=== PATIENT | male | born 1950 | race African-American/Black ===

== ENCOUNTER 2017-04-18 12:09 | Emergency (ER) | payer BC ==
[~2017-04-18] VITALS: Ht 180.3 cm; Wt 90.7 kg
[~2017-04-18 12:09] MED LIST: DOCU100T7; OXYCONTIN
[2017-04-18 12:20] VITALS: BP 118/63
== END 2017-04-18 14:42 | disposition home or self-care (01) ==
LOC: ER 12:09
DX: S46.912A Strain of unspecified muscle, fascia and tendon at shoulder and upper arm level, left arm, initial encounter (principal); Z79.899 Other long term (current) drug therapy; M25.562 Pain in left knee; G89.29 Other chronic pain; V43.52XA Car driver injured in collision with other type car in traffic accident, initial encounter; Y93.89 Activity, other specified; Y92.89 Other specified places as the place of occurrence of the external cause; Y99.8 Other external cause status

== ENCOUNTER 2017-04-27 18:25 | Emergency (ER) | payer BC ==
[~2017-04-27] VITALS: Ht 180.3 cm; Wt 88.5 kg
[2017-04-27 18:40] VITALS: BP 121/75
[2017-04-27 19:35] LABS: Basophils # (auto) 0 uL; Basophils % (auto) 0.5 % (0.0-2.0); CONDITION Y; Eosinophils # (auto) 0.1 uL; Eosinophils % (auto) 0.9 % (0.0-7.0); Hematocrit 47.8 % (41.0-53.0); Hemoglobin 16.2 g/dL (13.5-17.5); Lymphocytes # (auto) 2.2 uL; Lymphocytes % (auto) 27.2 % (10.0-50.0); Mean Corpuscular Hemoglobin 30.4 pg (28.0-32.0); Mean Corpuscular Hgb Conc. 33.9 g/dL (32.0-36.0); Mean Corpuscular Volume 89.6 fL (80.0-100.0); Mean Platelet Volume 7.4 fL (7.4-10.4); Monocytes # (auto) 1.1 uL; Monocytes % (auto) 12.9 % (0.0-12.0); Neutrophils # (auto) 4.8 uL; Neutrophils % (auto) 58.5 % (37.0-80.0); Platelet Count (auto) 224 10^3/uL (140-450); Red Cell Distribution Width 13.2 % (11.6-16.0); White Blood Cell 8.2 10^3/uL (4.4-10.8)
[2017-04-27 20:13] LABS: Albumin 3.8 g/dL (3.4-5.0); Alkaline Phosphatase 118 U/L (45-117); Anion Gap 6 (5-15); Aspartate Aminotransferase 20 U/L (15-37); BUN/Creatinine Ratio 12.2; Bilirubin, Total 1.1 mg/dL (0.2-1.0); Blood Urea Nitrogen 11 mg/dL (7-18); Calcium 8.8 mg/dL (8.5-10.1); Carbon Dioxide 28 mmol/L (21-32); Chloride 102 mmol/L (98-107); GFR African American 108 mL/min; GFR Non-African American 89 mL/min; Glucose 115 mg/dL (74-106); Potassium 3.7 mmol/L (3.5-5.1); Sodium 136 mmol/L (136-145); Total Protein 7.4 g/dL (6.4-8.2)
== END 2017-04-27 23:40 | disposition left against medical advice (07) ==
LOC: ER 18:26
DX: R07.9 Chest pain, unspecified (principal); Z53.21 Procedure and treatment not carried out due to patient leaving prior to being seen by health care provider
CPT/HCPCS: 36415; 71020; 80053; 84484; 85025; 93005

== ENCOUNTER 2017-12-19 14:54 | Emergency (ER) | payer BC ==
[~2017-12-19] VITALS: Ht 180.3 cm; Wt 86.2 kg
[2017-12-19 15:10] VITALS: BP 107/80
== END 2017-12-19 16:02 | disposition home or self-care (01) ==
LOC: ER 14:59
DX: G89.29 Other chronic pain (principal); M25.532 Pain in left wrist

== ENCOUNTER 2018-07-27 15:12 | Emergency (ER) | payer BC ==
[~2018-07-27] VITALS: Ht 180.3 cm; Wt 83.5 kg
[2018-07-27 16:48] VITALS: BP 106/76
[2018-07-27] MEDS ORDERED: IBUPROFEN 800 MG TAB PO ONE (17:45)
== END 2018-07-27 17:53 | disposition home or self-care (01) ==
LOC: ER 15:12
DX: R07.89 Other chest pain (principal); E11.9 Type 2 diabetes mellitus without complications; V43.52XA Car driver injured in collision with other type car in traffic accident, initial encounter; Y93.89 Activity, other specified; Y99.8 Other external cause status; Y92.410 Unspecified street and highway as the place of occurrence of the external cause